=== PATIENT | male | born 2000 | race African-American/Black ===

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

== ENCOUNTER 2019-03-07 03:35 | Emergency (ER) | payer OTHER, MEDICAID ==
--- NOTE | 2019-03-07 03:46 | ED ---
Substance Abuse/Use - HPI Summary HPI Summary: 18 year old M brought in by EMS to [facility] complains of "just a little" ETOH and marijuana use [employer]. States he is sleepy. States his friends called 911 because they were worried that he was so sleepy. Symptoms aggravated by nothing. Symptoms alleviated by nothing. - History Of Current Complaint Stated Complaint: ETOH Hx Obtained From: Patient Ingestion History: Type/Name Of Drug - ETOH and marijuana, Amount Ingested - "just a little", Approximate Time Of Ingestion - [employer]GER Aggravating Factor(s): Nothing Alleviating Factor(s): Nothing - Allergies/Home Medications Allergies/Adverse Reactions: Allergies Allergy/AdvReac Type Severity Reaction Status Date / Time No Known Allergies Allergy Verified 11/24/17 18:43 Home Medications: Home Medications Unobtainable 03/07/19 [History Confirmed 03/07/19] PMH/Surg Hx/FS Hx/Imm Hx Endocrine/Hematology History: Denies: Hx Diabetes Cardiovascular History: Denies: Hx Hypertension - Surgical History Surgery Procedure, Year, and Place: None - Family History Known Family History: Negative: Hypertension - Social History Alcohol Use: Occasionally Hx Substance Use: Yes Substance Use Type: Reports: Marijuana Smoking Status (MU): Never Smoked Tobacco Review of Systems - ROS Summary Review of Systems Summary: Home Medications Medication Instructions Recorded Confirmed Type NK [No Home Medications Reported] 11/24/17 11/24/17 History Negative: Fever Positive: Other - ETOH and marijuana use All Other Systems Reviewed And Are Negative: Yes Physical Exam - Summary Physical Exam Summary: General: Thin MALE. No acute distress. He states he is sleepy. HEENT: Normocephalic, Atraumatic. Eyes: Conjuctiva normal, PERRL. Ears: TMs within normal limits. Nares: (-) discharge, (-) erythema. Oropharynx: Clear, mucous membranes moist, (-) exudates. Neck: Soft, FROM, (-) lymphadenopathy, (-) thyromegaly, (-) JVD. Cardiovascular: Normal sinus rhythm, (-) murmur. Lungs: Clear to auscultation bilaterally (-) wheezes, (-) rales, (-) rhonchi. Abdomen: Soft, non-tender, non-distended, (-) organomegaly, normal bowel sounds. Back: (-) CVA tenderness Extremities: No edema. Skin: Warm, dry, (-) rash. Neuro: Patient is sluggish Psychiatric: Flat affect Triage Information Reviewed: Yes Vital Signs Reviewed: Yes Procedures - Sedation Patient Received Moderate/Deep Sedation with Procedure: No Re-Evaluation - Re-Evaluation First Eval Re-Evaluation Time: 06:32 Comment: patient ambulated in the ED without difficulty. He is alert and oriented. I have discussed results with the patient and his intoxication is resolved. Discussed symptoms that warrant immediate return to ED. Course/Dx - Course Course Of Treatment: 18 year old M brought in by EMS to [facility] complains of " just a little" ETOH and marijuana use [employer]GI[employer]GER. Upon exam, the patient is a thin male who states he is sleepy. He is sluggish and has a flat affect. After some time in the ED, patient ambulated without difficulty. He is alert and oriented. Patient will be discharged home with follow up from [facility] in 3 days. Patient was instructed to return to Emergency Department for new or worsening symptoms. Patient understands and is agreeable to this plan. - Diagnoses Provider Diagnoses: Alcohol intoxication Discharge ED - Sign-Out/Discharge Documenting (check all that apply): Patient Departure - Discharge - Discharge Plan Condition: Stable Disposition: HOME Patient Education Materials: Alcohol Intoxication (ED) Referrals: [facility] - Ajay GRANADOS [Primary Care Provider] - 3 Days Additional Instructions: Stop drinking alcohol. Please follow up with [facility] within 3 days. Please return to Emergency Department for any new or worsening symptoms. - Billing Disposition and Condition Condition: STABLE Disposition: Home - Attestation Statements Document Initiated by Jessenia: Yes Documenting Scribe: Faiza Booth Provider For Whom Jessenia is Documenting (Include Credential): Monika Lanza MD Scribe Attestation: I, Faiza Booth, scribed for Monika Lanza MD on 03/10/19 at 2130. Scribe Documentation Reviewed: Yes Provider Attestation: The documentation as recorded by the Faiza cast accurately reflects the service I personally performed and the decisions made by me, Monika Lanza MD Status of Scribe Document: Viewed
[2019-03-07 06:12] VITALS: BP 107/70
== END 2019-03-07 06:35 | disposition home or self-care (01) ==
LOC: ED 03:35
DX: F10.929 Alcohol use, unspecified with intoxication, unspecified (principal)
CPT/HCPCS: 99283